=== PATIENT | female | born 1995 | race Caucasian/White ===

== ENCOUNTER 2018-10-07 09:48 | Outpatient (CLI) | payer MEDICAID, SELFPAY ==
[2018-10-07 11:47] LABS: TSH (W/Ref FT4) 2.64 uIU/mL (0.358-3.74)
[2018-10-08 09:07] LABS: DHEA Sulfate 445 ug/dl (134-407)
[2018-10-08 10:03] LABS: FSH 7.9 mIU/ml
[2018-10-08 10:27] LABS: Prolactin 9.3 ng/ml
[2018-10-10 17:13] LABS: Testosterone, Free 1.51 ng/dL (0.06-1.08); Testosterone, Total 63 ng/dL (8-60)
== END 2018-10-07 10:08 ==
PROVIDERS: Visit Provider Nurse Practitioner Women's Health
DX: N91.2 Amenorrhea, unspecified (principal)
CPT/HCPCS: 36415; 82627; 84402; 84403; 83001; 84146; 84443

== ENCOUNTER 2018-10-14 09:29 | Outpatient (REF) | payer MEDICAID, SELFPAY ==
--- NOTE | 2018-10-14 08:30 | PAPFT_PTH ---
PATIENT: Baljit Burnett LOC: [facility] U#:[id number] AGE/SX: 23/F ROOM: RE10/14/[address]: Malaika Corbett NP : 1995 BED: DIS: 10/14/2018 SPEC #: [id number] RECD: 10/14/18 10:56 STATUS: NAOMI SANDERS #: [id number] RHONDA: 10/14/18 08:[address]: Malaika Corbett NP DEPT: [facility] Cytology RECD BY: Elizabeth Mtz ENTERED: 10/14/18 10:56 SP TYPE: PAPFT OT DR: Estephanie Local Tissues: 1 - CX/ENDOCX FOR PAP SMEARS Procedures: PAP THIN PREP/UVM Screening Comments: [id number] (CHLAMYDIA/GC)
[2018-10-15 14:45] LABS: GC Result Negative; Specimen Description SEE COMMENTS
[2018-10-18 08:45] LABS: Chlamydia Result Positive
== END 2018-10-14 09:49 ==
LOC: LBN 09:29
PROVIDERS: Visit Provider Nurse Practitioner Women's Health
DX: Z11.3 Encounter for screening for infections with a predominantly sexual mode of transmission (principal); Z12.4 Encounter for screening for malignant neoplasm of cervix
CPT/HCPCS: 87491; 87591; 88142

== ENCOUNTER 2018-11-18 15:26 | Outpatient (REF) | payer MEDICAID, SELFPAY ==
[2018-11-22 13:50] LABS: Chlamydia Result Negative; GC Result Negative; Specimen Description URINE
== END 2018-11-18 15:46 ==
LOC: LBN 15:26
PROVIDERS: PCP Nurse Practitioner; Visit Provider Nurse Practitioner
DX: A74.9 Chlamydial infection, unspecified (principal); Z11.3 Encounter for screening for infections with a predominantly sexual mode of transmission
CPT/HCPCS: 87491; 87591

== ENCOUNTER 2019-03-14 21:04 | Emergency (ER) | payer MEDICAID, SELFPAY ==
[2019-03-14 21:07] VITALS: BP 126/66; PULSE 79; RESP 18; TEMP 36.1; O2SAT 100
--- NOTE | 2019-03-14 21:45 | ED.GENADUL_ITS ---
Discharge Plan Disposition Patient Disposition: HOME Discharge Details Chief Complaint: Headache Clinical Impression: Migraine headache Primary Care Provider: Zoey Washington ED Provider: César Bermudez Home Meds and New Rx's Prescriptions: Continued norethindrone (contraceptive) 0.35 mg tablet 0.35 mg PO DAILY Qty: 84 RF: 5 Aptiom 800 mg tablet 1,200 mg PO DAILY RF: 0 topiramate [Topamax] 25 MG tablet 100 mg PO BID Qty: 360 RF: 0 promethazine 25 MG tablet 25 mg PO TID PRNQty: 30 RF: 11 indomethacin 25 MG capsule 25 mg PO PRN Qty: 90 RF: 0 lorazepam 1 MG tablet 1 tab PO Q3H PRN Qty: 5 RF: 0 Discharge Instructions Instructions: Migraine Headache (ED) Additional Instructions: Please take seizure medication as prescribed. Please contact your primary care physician to arrange follow-up. Return to the ER for any worsening or new concerning symptoms. Referrals: Zoey Washington, ESTELA [Primary Care Provider] - Medical Decision Making 21:51 --23-year-old female with history of migraine disorder as well as seizure disorder, here with severe migraine and associated nausea and vomiting, not tolerating oral medications. Plan to treat migraine and nausea with Compazine IV, Benadryl IV, Toradol IV, and IV fluids and reassess. 22:23 --patient reassessed and feeling much better. Resting comfortably. Plan to discharge with instructions to take her antiepileptic as prescribed tonight. Usual and customary discharge instructions were provided. HPI General Mode of arrival: ambulatory . Date/Time Provider Initiated Documentation: 03/14/19 21:10 . Limitations to Documentation: no limitations . Information obtained by: patient . HPI Narrative: 23-year-old female with history of seizure disorder and chronic migraines, presents tonight with chief complaint of severe migraine. Patient notes migraine started at 10 AM this morning and unfortunately she was not able to take her Topamax in time to prevent escalation. She notes severe associated nausea and vomiting which is typical for her severe migraines. Headache is persisted all day. Unfortunately given the vomiting, she has not been able to tolerate if her medications including anti-epileptic. Patient's mother notes that she had similar migraine in November. She was sent to the ED by her primary care physician for evaluation and treatment. Related Data Home Medications Medication Instructions Recorded Confirmed topiramate [Topamax] 100 mg PO BID #360 tab-cap 02/14/13 03/14/19 indomethacin 25 mg PO PRN #90 cap 07/21/14 03/14/19 promethazine 25 mg PO TID PRN #30 tab 07/21/14 03/14/19 lorazepam 1 tab PO Q3H PRN #5 tab 07/03/17 03/14/19 eslicarbazepine 800 mg tablet 1,200 mg PO DAILY tab 10/07/18 03/14/19 norethindrone (contraceptive) 0.35 0.35 mg PO DAILY #84 tab 01/12/19 03/14/19 mg tablet Previous Rx's Medication Instructions Recorded lorazepam 1 tab PO Q3H PRN #5 tab 07/03/17 norethindrone (contraceptive) 0.35 0.35 mg PO DAILY #84 tab 01/12/19 mg tablet Allergies Allergy/AdvReac Type Severity Reaction Status Date / Time erythromycin base Allergy Verified 03/14/19 21:19 Sulfa (Sulfonamide Allergy Verified 03/14/19 21:19 Antibiotics) General Stated Complaint: Headache ROBERTO: 3 Review of Systems Review of Systems ROS Unobtainable: All systems reviewed & are unremarkable except as noted in HPI and below Constitutional Constitutional: Denies fever(s) and Reports headache(s) ENT Ears, Nose, Mouth, and Throat: Reports headache(s) Gastrointestinal Gastrointestinal: Denies abdominal pain, Reports nausea and Reports vomiting Neurologic Neurologic: Reports headache(s) [facility] Medical History Fracture of skull Learning difficulty Partial seizure PCOS (polycystic ovarian syndrome) (Chronic) Surgical History Fracture, Open Treatment R elbow - plate 2007 temporal lobectomy 2002 Family History Maternal Grandmother Breast cancer Cervical cancer Paternal Grandmother Breast cancer Father Stroke Diabetes Social History Smoking/Tobacco Use Status: Never Alcohol Intake: never Drug use: Never Substance use type: does not use Household members: other Details: lives with parents Housing: house Sexually active: No Do you think of yourself as: straight/heterosexual Current gender identity: female What type of physical activity do you participate in: walking, regular exercise and other Details: recess duty at work, walks 1 mile day Do you feel safe at home: Yes Female Reproductive History Menstrual Age of Menarche: 10 control method: none History History 0 Para Hx # Term Pregnancies Multiple births Hx # Pregnancies Ectopic pregnancies AB induced Hx Number of Living Children AB spontaneous Exam Const General: cooperative and no acute distress HENMT Head: normocephalic Mouth: moist mucous membranes Eyes Conjunctivae: normal conjunctivae Sclera: normal sclerae Neck Neck: full ROM, no meningeal signs, trachea midline and supple Resp Auscultation: clear to auscultation bilaterally, no rales, no rhonchi and no wheezes Cardio Jugular venous pressure: no JVD Rate: regular rate and not tachycardic Rhythm: regular rhythm GI Palpation: soft, not firm, no guarding, no masses, not rigid and nontender Skin General skin exam: no rashes or lesions noted Neuro General: alert, awake, oriented x3 and tone normal Cranial Nerves: CN's II-XI intact bilaterally Cognition: normal cognition Speech: speech normal Motor: strength 5/5 throughout Sensory Exam: no sensory deficits noted Extrem General: no edema Psych Appearance: grossly normal Mental Status: mental status grossly normal Course Vital Signs Vital signs: Vital Signs Temperature 36.1 C L 03/14/19 21:07 Pulse 79 03/14/19 21:07 Respiratory Rate 18 03/14/19 21:07 Blood Pressure 126/66 03/14/19 21:07 Pulse Oximetry 100 03/14/19 21:07 Temperature 36.1 C L 03/14/19 21:07 Temperature Source Skin 03/14/19 21:07 Pulse 79 03/14/19 21:07 Respiratory Rate 18 03/14/19 21:07 Blood Pressure 126/66 03/14/19 21:07 Blood Pressure Position Sitting 03/14/19 21:07 Pulse Oximetry 100 03/14/19 21:07 Oxygen Delivery Method Room Air 03/14/19 21:07 Oxygen Flow Rate 0 03/14/19 21:07 Pain Level 10 03/14/19 21:07
[2019-03-14] MEDS: diphenhydrAMINE 50 MG/ML VIAL 25 MG IVP (21:48)
[2019-03-14] MEDS: Normal Saline 1,000 ML 1000 ML IV (21:49)
[2019-03-14] MEDS: Ketorolac 30 MG/ML VIAL IVP (21:49)
[2019-03-14] MEDS: Prochlorperazine 10 MG/2 ML VIAL IVP (21:50)
[2019-03-14 22:56] VITALS: BP 129/67; PULSE 82; RESP 16; TEMP 36.5; O2SAT 100
== END 2019-03-14 22:56 | disposition home or self-care (01) ==
PROVIDERS: Emergency Provider Student in an Organized Health Care Education/Training Program; PCP Nurse Practitioner
DX: G43.909 Migraine, unspecified, not intractable, without status migrainosus (principal)
CPT/HCPCS: 96361; 96374; 96375; 99284; J0780; J1200; J1885

== ENCOUNTER 2019-12-05 20:46 | Emergency (ER) | payer MEDICAID, SELFPAY ==
[2019-12-05 20:49] VITALS: BP 127/81; PULSE 64; RESP 16; TEMP 36.6; O2SAT 100
[2019-12-05] MEDS: Normal Saline 1,000 ML 1000 ML IV (21:00)
[2019-12-05] MEDS: Ketorolac 15 MG/ML VIAL IVP (21:42)
[2019-12-05] MEDS: Prochlorperazine 10 MG/2 ML VIAL IVP (21:42)
[2019-12-05] MEDS: diphenhydrAMINE 50 MG/ML VIAL 25 MG IVP (21:42)
--- NOTE | 2019-12-05 22:16 | ED.GENADUL_ITS ---
Discharge Plan Disposition Patient Disposition: HOME Condition: Stable Discharge Details Chief Complaint: Headache Clinical Impression: Cephalgia Primary Care Provider: Zoey Washington ED Provider: Derek Bone Home Meds and New Rx's Prescriptions: Continued norethindrone (contraceptive) 0.35 mg tablet 0.35 mg PO DAILY Qty: 84 RF: 5 topiramate [Topamax] 100 mg tablet 100 mg PO BID Qty: 180 RF: 3 indomethacin 25 mg capsule 25 mg PO PRN Qty: 90 RF: 3 promethazine 25 mg tablet 25 mg PO TID PRN (Reason: headache) Qty: 30 RF: 3 Aptiom 800 mg tablet 1,200 mg PO DAILY RF: 0 lorazepam 1 MG tablet 1 tab PO Q3H PRN Qty: 5 RF: 0 Discharge Instructions Instructions: General Headache (ED) Additional Instructions: At this time you have responded nicely to the IV medications and are requesting discharge. Please take your medications as directed. Watch for new or worsening symptoms and return to the ER for any concerns. I recommend reaching out your primary care provider and neurology team tomorrow for prompt outpatient reevaluation. Medical Decision Making 24-year-old female with history of seizures and migraines, presents for migraine and fear of having a seizure. She reports this feels exactly the same as her previous migraines. She appears well, nontoxic. No recent illness or trauma. She is neurologically intact, no signs of infection. Reviewing her previous record she received Compazine, Benadryl, Toradol and IV fluid. She reports that this resolves her symptoms completely and at this time I see no reason to try anything else. Patient and her sister are agreeable to this plan I do not believe that any laboratory values are indicated at this time. They would likely not change the overall outcome. Patient's sister came out of exam room 1 reporting that she was asymptomatic and requesting discharge. Patient had just received her medications and she will be observed longer. IV fluid is now completed and she is sleeping. Patient is awake and ambulatory to the restroom without difficulty. No additional questions or concerns and again requesting discharge. She was able to tolerate p.o. intake. Likely can now take her regular medications without difficulty. Encouraged to return to the ER for new or worsening symptoms, otherwise contact her primary care provider and neurology team tomorrow for prompt outpatient reevaluation Medical Records Medical records reviewed: Yes I reviewed the patient's medical records. HPI General Mode of arrival: ambulatory . Date/Time Provider Initiated Documentation: 12/05/19 21:05 . Limitations to Documentation: no limitations . Information obtained by: patient . HPI Narrative: This is a 24-year-old female who presents with her sister for evaluation of migraine. She reports this history of PCOS, migraines, seizure disorder. She was asymptomatic yesterday. Denies recent illness or trauma. Awoke this morning with a mild global headache, felt normal for her migraine. Associate with photophobia and nausea. She took her regular medications and felt much better. Later this evening symptoms returned, she attempted to take her medications but vomited x1, did not hold the medications down. She reports that sometimes if she has a severe migraine it causes her to have a seizure. She was concerned and came to the ER for IV medications. She reports last seizure over a year ago, last migraine roughly 2 months ago. She denies fever, visual changes, neck pain, cough, shortness breath, chest pain, numbness, tingling, weakness, change in bowel or bladder function. Related Data Home Medications Medication Instructions Recorded Confirmed lorazepam 1 tab PO Q3H PRN #5 tab 07/03/17 03/14/19 eslicarbazepine 800 mg tablet 1,200 mg PO DAILY tab 10/07/18 03/14/19 norethindrone (contraceptive) 0.35 0.35 mg PO DAILY #84 tab 01/12/19 03/14/19 mg tablet indomethacin 25 mg capsule 25 mg PO PRN #90 cap 03/15/19 03/15/19 promethazine 25 mg tablet 25 mg PO TID PRN #30 tab 03/15/19 03/15/19 topiramate 100 mg tablet 100 mg PO BID #180 tab 03/15/19 05/06/19 Previous Rx's Medication Instructions Recorded lorazepam 1 tab PO Q3H PRN #5 tab 07/03/17 norethindrone (contraceptive) 0.35 0.35 mg PO DAILY #84 tab 01/12/19 mg tablet indomethacin 25 mg capsule 25 mg PO PRN #90 cap 03/15/19 promethazine 25 mg tablet 25 mg PO TID PRN #30 tab 03/15/19 topiramate 100 mg tablet 100 mg PO BID #180 tab 03/15/19 Allergies Allergy/AdvReac Type Severity Reaction Status Date / Time erythromycin base Allergy Severe she says Verified 12/05/19 20:53 it makes her very sick Sulfa (Sulfonamide Allergy Severe makes her Verified 12/05/19 20:53 Antibiotics) very sick General Stated Complaint: Headache ROBERTO: 3 Review of Systems Constitutional Constitutional: Denies fatigue, Denies fever(s), Reports headache(s) and Denies weakness Eyes Eyes: Denies change in vision ENT Ears, Nose, Mouth, and Throat: Denies dizziness, Reports headache(s) and Denies neck pain Cardiovascular Cardiovascular: Denies chest pain and Denies dyspnea Respiratory Respiratory: Denies cough and Denies dyspnea Gastrointestinal Gastrointestinal: Denies abdominal pain, Reports nausea and Reports vomiting Musculoskeletal Musculoskeletal: Denies back pain, Denies neck pain, Denies numbness and Denies tingling Integumentary/Breasts Skin/Breast: Denies rash Neurologic Neurologic: Denies dizziness, Reports headache(s), Denies numbness, Denies tingling and Denies weakness Endocrine Endocrine: Denies fatigue PFSH Medical History Fracture of skull Learning difficulty Migraine without aura (Acute) Partial seizure PCOS (polycystic ovarian syndrome) (Chronic) Surgical History Fracture, Open Treatment R elbow - plate 2008 temporal lobectomy 2002 Family History Maternal Grandmother Breast cancer Cervical cancer Paternal Grandmother Breast cancer Father Stroke Diabetes Social History Smoking/Tobacco Use Status: Never Alcohol Intake: never Drug use: Never Substance use type: does not use Household members: other Details: lives with parents Housing: house Sexually active: No Do you think of yourself as: straight/heterosexual Current gender identity: female What type of physical activity do you participate in: walking, regular exercise and other Details: recess duty at work, walks 1 mile day Do you feel safe at home: Yes Female Reproductive History Menstrual Age of Menarche: 10 control method: none History History 0 Para Hx # Term Pregnancies Multiple births Hx # Pregnancies Ectopic pregnancies AB induced Hx Number of Living Children AB spontaneous Exam Const General: cooperative, healthy appearing, comfortable and no acute distress Orientation: alert, awake and oriented x3 HENMT Head: normal to inspection, normocephalic and atraumatic Ears: external ears normal, TM's normal bilaterally and EAC's normal Mouth: oral mucosae normal and moist mucous membranes Throat: posterior oropharynx normal Eyes General: appearance normal, both eyes and all related structures Alignment and Position: alignment normal Periorbital: periorbital findings normal Conjunctivae: conjunctivae normal Sclera: sclerae normal Cornea: corneas normal Pupils: PERRL EOM: EOM intact bilaterally Direct ophthalmoscopy: normal light reflex Neck Neck: normal visual inspection, full ROM, no meningeal signs, trachea midline, supple and nontender Resp Effort & Inspection: normal respiratory effort and able to speak in complete sentences Auscultation: clear to auscultation bilaterally Cardio Rate: regular rate Rhythm: regular rhythm GI Palpation: soft and nontender Back/Spine/Pelvis Back: No back tenderness Skin General skin exam: no rashes or lesions noted Neuro General: patient alert, patient awake, patient oriented x3, moves all extre mities and no focal motor deficits Cranial Nerves: CN's II-XI intact bilaterally Cognition: normal cognition Speech: speech normal Gait: normal gait Motor: muscle tone normal throughout and strength 5/5 throughout Sensory Exam: no sensory deficits noted Coordination: Does not sway with eyes open Extrem General: normal to inspection, full ROM and capillary refill normal Psych Appearance: grossly normal Mental Status: mental status grossly normal Course Vital Signs Vital signs: Vital Signs Temperature 36.6 C 12/05/19 20:49 Pulse 64 12/05/19 20:49 Respiratory Rate 16 12/05/19 20:49 Blood Pressure 127/81 12/05/19 20:49 Pulse Oximetry 100 12/05/19 20:49 Temperature 36.6 C 12/05/19 20:49 Temperature Source Skin 12/05/19 20:49 Pulse 64 12/05/19 20:49 Respiratory Rate 16 12/05/19 20:49 Respiratory Effort Non-Labored 12/05/19 21:14 Blood Pressure 127/81 12/05/19 20:49 Blood Pressure Position Sitting 12/05/19 20:49 Pulse Oximetry 100 12/05/19 20:49 Oxygen Delivery Method Room Air 12/05/19 20:49 Oxygen Flow Rate 0 12/05/19 20:49 Pain Level 7 12/05/19 20:49
[2019-12-05 22:36] VITALS: BP 124/87; PULSE 66; RESP 14; TEMP 36.6; O2SAT 100
== END 2019-12-05 22:35 | disposition home or self-care (01) ==
PROVIDERS: Emergency Provider Physician Assistant; PCP Nurse Practitioner
DX: G43.809 Other migraine, not intractable, without status migrainosus (principal); R11.0 Nausea; G40.909 Epilepsy, unspecified, not intractable, without status epilepticus
CPT/HCPCS: 96361; 96374; 96375; 99284; J0780; J1200; J1885

== ENCOUNTER 2019-12-08 04:33 | Outpatient (CLI) | payer MEDICAID, SELFPAY ==
[2019-12-20 16:15] LABS: Reference Value See Comments
== END 2019-12-08 04:53 ==
PROVIDERS: PCP Nurse Practitioner; Visit Provider Nurse Practitioner
DX: G40.909 Epilepsy, unspecified, not intractable, without status epilepticus (principal); G43.009 Migraine without aura, not intractable, without status migrainosus; Z51.81 Encounter for therapeutic drug level monitoring
CPT/HCPCS: 36415; 80299

== ENCOUNTER 2020-03-16 14:49 | Outpatient (REF) | payer MEDICAID, SELFPAY ==
--- NOTE | 2020-03-16 14:40 | PAPFT_PTH ---
PATIENT: Baljit Burnett LOC: [facility] U#:[id number] AGE/SX: 24/F ROOM: RE03/16/[address]: BRII Gibbs : 1995 BED: DIS: 03/16/2020 SPEC #: [id number] RECD: 03/16/20 17:42 STATUS: NAOMI RETalia #: [id number] RHONDA: 03/16/20 14:[address]: Mar Flores DEPT: [facility] Cytology RECD BY: Roya Marie ENTERED: 03/16/20 17:42 SP TYPE: PAPFT CHEMA DR: Zoey Washington APRN Tissues: 1 - CX/ENDOCX FOR PAP SMEARS Procedures: PAP THIN PREP/UVM Screening Comments: [id number]
== END 2020-03-16 15:09 ==
LOC: LBN 14:49
PROVIDERS: PCP Nurse Practitioner; Visit Provider Nurse Practitioner Family
DX: Z12.4 Encounter for screening for malignant neoplasm of cervix (principal)
CPT/HCPCS: 88142

== ENCOUNTER 2020-06-01 03:34 | Outpatient (CLI) | payer MEDICAID, SELFPAY ==
[2020-06-03 19:06] LABS: COVID-19 RT-PCR Result NEGATIVE (Negative)
== END 2020-06-01 03:54 ==
PROVIDERS: PCP Nurse Practitioner; Visit Provider Nurse Practitioner
DX: Z11.59 Encounter for screening for other viral diseases (principal)
CPT/HCPCS: U0003

== ENCOUNTER 2020-09-13 08:28 | Outpatient (CLI) | payer MEDICAID, SELFPAY ==
[2020-09-14 16:03] LABS: COVID-19 RT-PCR UVMMC Result Negative (Negative)
== END 2020-09-13 08:29 | disposition home or self-care (01) ==
PROVIDERS: PCP Nurse Practitioner; Visit Provider Nurse Practitioner
DX: Z20.822 Contact with and (suspected) exposure to COVID-19 (principal)
CPT/HCPCS: U0003

== ENCOUNTER 2021-01-09 18:26 | Emergency (ER) | payer MEDICAID, SELFPAY ==
[2021-01-09 18:35] VITALS: BP 124/75; PULSE 51; TEMP 36.5; O2SAT 100
[2021-01-09] MEDS: Prochlorperazine 10 MG/2 ML VIAL IVP (19:25)
[2021-01-09] MEDS: diphenhydrAMINE 50 MG/ML VIAL 25 MG IVP (19:25)
[2021-01-09] MEDS: Normal Saline 1,000 ML 1000 ML IV (19:26)
[2021-01-09] MEDS: Ketorolac 30 MG/ML VIAL IVP (19:26)
[2021-01-09 19:43] VITALS: BP 106/67; PULSE 46; O2SAT 99
[2021-01-09 19:44] VITALS: O2SAT 99
[2021-01-09 19:46] VITALS: BP 108/47; PULSE 42; O2SAT 98
[2021-01-09 19:50] VITALS: O2SAT 98
--- NOTE | 2021-01-09 19:57 | ED.GENADUL_ITS ---
Discharge Plan Disposition Patient Disposition: HOME Condition: Stable Discharge Details Clinical Impression: Headache Primary Care Provider: Zoey Washington ED Provider: César Bermudez Home Meds and New Rx's Prescriptions: Continued promethazine 25 mg tablet 25 mg PO TID PRN (Reason: headache) Qty: 30 RF: 3 norethindrone (contraceptive) 0.35 mg tablet 0.35 mg PO DAILY Qty: 84 RF: 3 Aptiom 800 mg tablet 1,200 mg PO DAILY RF: 0 lorazepam 1 MG tablet 1 tab PO Q3H PRN Qty: 5 RF: 0 indomethacin 25 mg capsule 25 mg PO PRN Qty: 60 RF: 0 topiramate [Topamax] 100 mg tablet 100 mg PO HS RF: 0 Discharge Instructions Instructions: Migraine Headache (ED) Additional Instructions: Please take it easy and allow for brain rest tonight and tomorrow. Hold indomethacin tonight. You can continue as prescribed tomorrow. Please contact your primary care physician to arrange follow-up. Return to the ER for any worsening or new concerning symptoms. Stand Alone Forms: Work Release Referrals: Zoey Washnigton NP [Primary Care Provider] - Discharge Data Discharge Date/Time-TO BE ENTERED AT DEPARTURE: 01/09/21 20:15 Medical Decision Making 25-year-old female with history of migraine headaches, here with headache with prior migraines. Neurologically intact. Patient was given Compazine 10 mg IV, Benadryl 25 mg IV, and Toradol 30 mg IV as well as IV fluid bolus. On reassessment, patient noted complete resolution of pain. Plan for discharge with outpatient follow-up. Disposition decision was made weighing the risks and benefits of hospitalization versus outpatient treatment, the risk for further decompensation, and the patient's wishes. The patient was stable and requested discharge. Prior to discharge, my usual and customary return precautions were reviewed with the patient - this included follow-up instructions and reason to return to the emergency department if condition worsens, does not improve as expected, or other new concerns arise. HPI General Mode of arrival: ambulatory . Date/Time Provider Initiated Documentation: 01/09/21 18:55 . Limitations to Documentation: no limitations . Information obtained by: patient . HPI Narrative: 25-year-old female with history of migraine headaches, here with headache with prior migraines. Headache is moderate and persistent. No associated numbness or tingling. No visual changes. Patient notes that typically her headaches respond to prescribed medications. She does not have access to her prescription this afternoon and last took meds this morning. Related Data Home Medications Medication Instructions Recorded Confirmed lorazepam 1 tab PO Q3H PRN #5 tab 07/03/17 01/09/21 eslicarbazepine 800 mg tablet 1,200 mg PO DAILY tab 10/07/18 01/09/21 promethazine 25 mg tablet 25 mg PO TID PRN #30 tab 03/15/19 01/09/21 norethindrone (contraceptive) 0.35 0.35 mg PO DAILY #84 tab 03/16/20 01/09/21 mg tablet indomethacin 25 mg capsule 25 mg PO PRN #60 cap 04/17/20 01/09/21 topiramate [Topamax] 100 mg PO HS 01/09/21 01/09/21 Previous Rx's Medication Instructions Recorded lorazepam 1 tab PO Q3H PRN #5 tab 07/03/17 promethazine 25 mg tablet 25 mg PO TID PRN #30 tab 03/15/19 norethindrone (contraceptive) 0.35 0.35 mg PO DAILY #84 tab 03/16/20 mg tablet indomethacin 25 mg capsule 25 mg PO PRN #60 cap 04/17/20 Allergies Allergy/AdvReac Type Severity Reaction Status Date / Time erythromycin base Allergy Severe she says Verified 01/09/21 18:41 it makes her very sick Sulfa (Sulfonamide Allergy Severe makes her Verified 01/09/21 18:41 Antibiotics) very sick General Stated Complaint: Headache ROBERTO: 3 Review of Systems All systems reviewed & are unremarkable except as noted in HPI and below Constitutional Constitutional: Denies fever(s) Neurologic Neurologic: Reports as per HPI [facility] Medical History (Updated 01/09/21 @ 19:59 by César Bermudez MD) Fracture of skull Learning difficulty Migraine without aura Partial seizure PCOS (polycystic ovarian syndrome) Surgical History Fracture, Open Treatment R elbow - plate 2007 temporal lobectomy 2002 Family History Maternal Grandmother Breast cancer Cervical cancer Paternal Grandmother Breast cancer Father Stroke Diabetes Social History Smoking/Tobacco Use Status: Never Smoking risk assessment performed?: Yes Alcohol Intake: never Drug use: Never Substance use type: does not use Household members: other Details: lives with parents Housing: house Sexually active: No Do you think of yourself as: straight/heterosexual Current gender identity: female What type of physical activity do you participate in: walking, regular exercise and other Details: recess duty at work, walks 1 mile day Do you feel safe at home: Yes Do you feel safe in your relationship?: Yes Female Reproductive History Menstrual Age of Menarche: 10 control method: none History History 0 Para Hx # Term Pregnancies Multiple births Hx # Pregnancies Ectopic pregnancies AB induced Hx Number of Living Children AB spontaneous Exam Const General: cooperative and no acute distress HENMT Head: normocephalic and atraumatic Mouth: moist mucous membranes Eyes Conjunctivae: normal conjunctivae Sclera: normal sclerae EOM: EOM intact bilaterally Neck Neck: trachea midline and supple Resp Auscultation: clear to auscultation bilaterally, no rales, no rhonchi and no wheezes Cardio Rate: regular rate and not tachycardic Rhythm: regular rhythm GI Palpation: soft, not firm, no guarding, no masses, not rigid and nontender Skin General skin exam: no rashes or lesions noted Neuro General: patient alert, patient awake, patient oriented x3 and tone normal Cranial Nerves: CN's II-XI intact bilaterally Cognition: normal cognition Speech: speech normal Motor: muscle tone normal throughout and strength 5/5 throughout Sensory Exam: no sensory deficits noted Extrem General: no edema Psych Appearance: grossly normal Mental Status: mental status grossly normal Speech and Movement: speech and movement normal Course Vital Signs Vital signs: Vital Signs Temperature 36.5 C 01/09/21 18:35 Pulse 51 L 01/09/21 18:35 Blood Pressure 124/75 01/09/21 18:35 Pulse Oximetry 100 01/09/21 18:35 Temperature 36.5 C 01/09/21 18:35 Temperature Source Temporal Artery Scan 01/09/21 18:35 Pulse 42 L 01/09/21 19:46 Respiratory Effort Non-Labored 01/09/21 18:39 Blood Pressure 108/47 L 01/09/21 19:46 Blood Pressure Mean 60 01/09/21 19:46 Blood Pressure Position Sitting 01/09/21 18:35 Pulse Oximetry 98 01/09/21 19:50 Oxygen Delivery Method Room Air 01/09/21 18:35 Oxygen Flow Rate 0 01/09/21 18:35 Pain Level 10 01/09/21 18:43
[2021-01-09 19:58] VITALS: PULSE 56
== END 2021-01-09 20:15 | disposition home or self-care (01) ==
PROVIDERS: Emergency Provider Student in an Organized Health Care Education/Training Program; PCP Nurse Practitioner
DX: R51.9 Headache, unspecified (principal)
CPT/HCPCS: 96361; 96374; 96375; 99284; 99283; J0780; J1200; J1885

== ENCOUNTER 2021-04-01 12:03 | Outpatient (REF) | payer MEDICAID, SELFPAY ==
--- NOTE | 2021-04-01 11:50 | PAPFT_PTH ---
PATIENT: Baljit Burnett LOC: [facility] U#:[id number] AGE/SX: 25/F ROOM: RE04/01/[address]: Zoey Washington APRN : 1995 BED: DIS: 04/01/2021 SPEC #: [id number] RECD: 04/01/21 18:21 STATUS: NAOMI REQ #: [id number] RHONDA: 04/01/21 11:[address]: Zoey Washington DEPT: [facility] Cytology RECD BY: Roya Marie Tissues: 1 - CX/ENDOCX FOR PAP SMEARS Procedures: PAP THIN PREP/UVM Screening Comments: [id number] (CHLAMYDIA/GC)
[2021-04-02 13:46] LABS: Chlamydia Result Negative (Negative); GC Result Negative (Negative)
== END 2021-04-01 12:04 | disposition home or self-care (01) ==
LOC: LBN 12:03
PROVIDERS: PCP Nurse Practitioner; Visit Provider Nurse Practitioner
DX: Z11.3 Encounter for screening for infections with a predominantly sexual mode of transmission (principal); Z12.4 Encounter for screening for malignant neoplasm of cervix
CPT/HCPCS: 87491; 87591; 88142

== ENCOUNTER 2024-05-04 02:24 | Outpatient (CLI) | payer OTHER, SELFPAY ==
[2024-05-04 16:19] LABS: Abs Immature Grans 0.04 10^3/uL (0.0-0.06); Absolute Basophil Count 0.02 10^3/uL (0.0-0.2); Absolute Eosinophil Count 0.02 10^3/uL (0.0-0.7); Absolute Monocyte Count 0.44 10^3/uL (0.1-0.8); Absolute Neutrophil Count 7.72 10^3/uL (1.2-6.7); Basophils % 0.2 %; Eosinophils % 0.2 %; HCT 41.6 % (36.0-46.0); HGB 13.8 g/dL (11.2-15.7); Immature Grans % 0.4 %; Lymphocytes % 15.4 %; MCH 26.4 pg (27.0-33.0); MCHC 33.2 % (32.0-36.0); MCV 80 fL (80-95); MPV 11.7 fL (8.0-11.0); Monocytes % 4.5 %; Neutrophils % 79.3 %; Platelet Count 232 10^3/uL (130-400); RBC 5.23 10^6/uL (3.93-5.22); RDW 13.9 % (11.7-14.6); RDW-SD 39.8 fL; WBC 9.74 10^3/uL (4.4-10.8)
[2024-05-04 17:10] LABS: ALT 44 U/L (14-59); AST 23 U/L (15-37); Albumin 4.4 g/dL (3.4-5.0); Alkaline Phosphatase 45 U/L (46-116); Anion Gap 10.4 mmol/L (3-11); BUN 7 mg/dL (7-18); Bilirubin, Total 0.64 mg/dL (0.2-1.0); CO2 27.6 mmol/L (21.0-32.0); CREATININE 0.9 mg/dL (0.55-1.02); Calculated LDL 95 mg/dL (<100); Chloride 104 mmol/L (98-107); Cholesterol 164 mg/dL (<200); Glucose 82 mg/dL (74-106); HDL Cholesterol 51 mg/dL (40-60); Potassium 3.8 mmol/L (3.5-5.1); Sodium 142 mmol/L (136-145); TSH (W/Ref FT4) 2.66 uIU/mL (0.36-3.74); Total Protein 7.6 g/dL (6.4-8.2); Triglyceride 92 mg/dL (<150)
== END 2024-05-04 02:25 | disposition home or self-care (01) ==
LOC: LBO 02:25
PROVIDERS: PCP Nurse Practitioner; Referring Provider Nurse Practitioner; Visit Provider Nurse Practitioner
DX: E66.9 Obesity, unspecified (principal); Z13.220 Encounter for screening for lipoid disorders; E28.2 Polycystic ovarian syndrome
CPT/HCPCS: 36415; 80053; 80061; 83036; 84443; 85025

== ENCOUNTER 2024-06-01 08:47 | Outpatient (REF) | payer MEDICAID, SELFPAY ==
--- NOTE | 2024-06-01 08:00 | PAPFT_PTH ---
PATIENT: Baljit Burnett LOC: [facility] U#:[id number] AGE/SX: 28/F ROOM: RE06/01/[address]: Zoey Washington APRN : 1995 BED: DIS: 06/01/2024 SPEC #: [id number] RECD: 06/01/24 17:47 STATUS: NAOMI REQ #: [id number] RHONDA: 06/01/24 08:[address]: Zoey Washington DEPT: [facility] Cytology RECD BY: Roya Marie Tissues: 1 - CX/ENDOCX FOR PAP SMEARS Procedures: PAP THIN PREP/UVM Screening Comments: [id number] (CHLAMYDIA/GC)
[2024-06-02 12:35] LABS: Chlamydia Result Negative (Negative); GC Result Negative (Negative)
== END 2024-06-01 08:48 | disposition home or self-care (01) ==
LOC: LBN 08:47
PROVIDERS: PCP Nurse Practitioner; Visit Provider Nurse Practitioner
DX: Z12.4 Encounter for screening for malignant neoplasm of cervix (principal)
CPT/HCPCS: 87491; 87591; 88142